=== PATIENT | female | born 1965 | race Caucasian/White ===

== ENCOUNTER 2017-03-12 15:45 | Emergency (ER) | payer BC, OTHER ==
[~2017-03-12] VITALS: Ht 154.9 cm; Wt 68.3 kg
[~2017-03-12 15:45] MED LIST: ELAVIL PO
[2017-03-12 16:16] LABS: HEMATOCRIT 44.3 % (36.0-46.0); MCH 30.6 PG (29.0-34.0); MCHC 36.1 G/DL (30.0-36.0); MCV 84.7 FL (83-99); MEAN PLAT.VOLUME 8.4 uM^3 (9.5-12.4); PLATELET COUNT 234 K/uL (156-360); RBC DIS.WIDTH-CV 12.7 % (11.8-14.6); RBC DIS.WIDTH-SD 38.1 % (39-53); RED BLOOD COUNT 5.23 M/uL (3.80-5.20); WHITE BLOOD COUNT 8.2 K/uL (4.1-10.2)
[2017-03-12 16:25] LABS: CHLORIDE 107 mEq/L (99-109); SODIUM 142 mEq/L (136-147)
[2017-03-12 16:28] LABS: GLUCOSE 98 mg/dL (70-99)
[2017-03-12 16:29] LABS: ANION GAP 10 MEQ/L (2-14)
[2017-03-12 16:30] LABS: TOTAL BILIRUBIN 0.7 mg/dL (0.0-1.0)
[2017-03-12 16:31] LABS: ALKALINE PHOSPHATASE 95 IU/L (3-129); GFR ESTIMATE (CALCULATED) > 59 mL/min/
[2017-03-12 16:32] LABS: UREA NITROGEN (BUN) 11 mg/dL (9-23)
[2017-03-12 16:40] LABS: QUANTITATIVE HCG < 4.0 MIU/ML
[2017-03-12 16:41] LABS: ADD MIUA? YES; BILIRUBIN NEGATIVE; BLOOD MODERATE; COLOR YELLOW ((YELLOW)); GLUCOSE (STRIP) NEGATIVE; KETONES NEGATIVE; LEUKOCYTES NEGATIVE; NITRITE NEGATIVE; PROTEIN (STRIP) NEGATIVE; SPECIFIC GRAVITY 1.015 (1.000-1.030); UROBILINOGEN 0.2 MG/DL (0.2-1.0)
[2017-03-12 16:47] LABS: BACTERIA NONE SEEN /HPF; EPITHELIAL CELLS RARE /HPF; MUCUS TRACE /LPF; RED BLOOD CELLS 20-30 /HPF (0-5); UCUL ADDED? NO; WHITE BLOOD CELLS 0-5 /HPF (0-5)
[2017-03-12 17:16] LABS: LIPASE 16 U/L (1.0-51.0)
[2017-03-12] MEDS ORDERED: NORCO 5/3251 TABLET PO (20:08)
[2017-03-12 20:28] VITALS: BP 163/100
== END 2017-03-12 20:29 | disposition home or self-care (01) ==
LOC: EME 15:45 → RME 15:45
DX: D25.9 Leiomyoma of uterus, unspecified (principal); N93.9 Abnormal uterine and vaginal bleeding, unspecified; M79.7 Fibromyalgia; M32.9 Systemic lupus erythematosus, unspecified
CPT/HCPCS: 74177; 76856; 80053; 81003; 83690; 84702; 85027; 99281; 99285; J1200; J2930; J3010; J7030